=== PATIENT | female | born 1960 | race Two or more races ===

== ENCOUNTER 2022-01-09 13:11 | Emergency (ER) | payer OTHER ==
[~2022-01-09] VITALS: Ht 160 cm; Wt 78.0 kg
[2022-01-09] MEDS ORDERED: MORPHINE SULFATE 4 MG/ML CPJ (NOT FOR IM USE) IV ONE (13:45)
[2022-01-09] MEDS ORDERED: KETOROLAC 15MG/ML VIAL IV ONE (13:45)
[2022-01-09] MEDS ORDERED: FENTANYL CITRATE/PF 50MCG/ML 2ML VIAL IV ONE ×3 (16:00→20:00)
[2022-01-09] MEDS ORDERED: PROPOFOL 200MG/20ML VIAL IV ONE (18:45)
[2022-01-09] MEDS ORDERED: KETAMINE HCL 50 MG/ML 10ML IV ONE (18:45)
[2022-01-09] MEDS ORDERED: PROPOFOL 200MG/20ML VIAL IV NR (18:51)
[2022-01-09] MEDS ORDERED: TRAM50TA3 MT (21:47)
[2022-01-09] MEDS ORDERED: IBUP-2030 MT (21:47)
[2022-01-09 22:44] VITALS: BP 136/76
== END 2022-01-09 23:00 | disposition home or self-care (01) ==
LOC: ER 13:11
DX: S42.291A Other displaced fracture of upper end of right humerus, initial encounter for closed fracture (principal); W01.198A Fall on same level from slipping, tripping and stumbling with subsequent striking against other object, initial encounter; Y93.01 Activity, walking, marching and hiking; Y92.480 Sidewalk as the place of occurrence of the external cause
CPT/HCPCS: 23650; 73030; 96374; 96375; 99152; 99285; J1885; J2270; J2704; J3010; J3490; L3670